=== PATIENT | male | born 1955 | race Caucasian/White ===

== ENCOUNTER 2017-05-27 06:57 | Emergency (ER) | payer BC ==
[~2017-05-27] VITALS: Ht 180.3 cm; Wt 104.5 kg
[2017-05-27 07:08] VITALS: BP 149/109
[2017-05-27 08:05] LABS: HEMATOCRIT 42.9 % (38.0-50.0); MCH 33.9 PG (29.0-34.0); MCHC 35.2 G/DL (30.0-36.0); MCV 96.4 FL (86-99); MEAN PLAT.VOLUME 9.2 uM^3 (9.0-12.4); PLATELET COUNT 92 K/uL (156-360); RBC DIS.WIDTH-CV 11.7 % (11.8-14.6); RBC DIS.WIDTH-SD 41.7 % (39-53); RED BLOOD COUNT 4.45 M/uL (4.00-5.50); WHITE BLOOD COUNT 4.2 K/uL (4.1-10.2)
[2017-05-27 08:13] LABS: CHLORIDE 93 mEq/L (99-109); POTASSIUM 3.2 mEq/L (3.7-5.4); SODIUM 134 mEq/L (136-147)
[2017-05-27 08:15] LABS: GLUCOSE 113 mg/dL (70-99)
[2017-05-27 08:16] LABS: ANION GAP 15 MEQ/L (2-14)
[2017-05-27 08:19] LABS: GFR ESTIMATE (CALCULATED) > 59 mL/min/
[2017-05-27 08:20] LABS: UREA NITROGEN (BUN) 10 mg/dL (9-23)
[2017-05-27 08:59] LABS: ERTH.SED.RATE 33 MM/HR (0-20)
[2017-05-27 09:11] LABS: C-REACTIVE PROTEIN 18.9 MG/L (0-10)
[2017-05-27] MEDS ORDERED: PREDNISONE5 M1 PO (10:16)
[2017-05-27 11:55] LABS: LYME DISEASE SEROLOGY SCREEN POSITIVE (NEGATIVE)
== END 2017-05-27 10:42 | disposition home or self-care (01) ==
LOC: EME 06:57
PROVIDERS: Physician Assistant
DX: L95.9 Vasculitis limited to the skin, unspecified (principal); R68.83 Chills (without fever); M79.1 Myalgia; R04.2 Hemoptysis; K42.9 Umbilical hernia without obstruction or gangrene
CPT/HCPCS: 80048; 85027; 85651; 86140; 86617 90; 86618; 99281; 99283